=== PATIENT | male | born 1990 | race Caucasian/White ===

== ENCOUNTER 2018-03-23 20:25 | Emergency (ER) | payer SELFPAY ==
[~2018-03-23] VITALS: Ht 177.8 cm; Wt 68.6 kg
[2018-03-23 20:29] VITALS: BP 148/66
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
--- NOTE | 2018-03-23 20:35 | NUR ---
PATIENT AMBULATED TO ER BED 10
[2018-03-23 21:37] VITALS: BP 148/66
== END 2018-03-23 21:37 | disposition home or self-care (01) ==
LOC: MED 20:25
DX: S13.9XXA Sprain of joints and ligaments of unspecified parts of neck, initial encounter (principal); V43.52XA Car driver injured in collision with other type car in traffic accident, initial encounter; Y93.I9 Activity, other involving external motion; Y92.411 Interstate highway as the place of occurrence of the external cause; Y99.8 Other external cause status
CPT/HCPCS: 72040; 99284